=== PATIENT | male | born 1955 | race Caucasian/White ===

== ENCOUNTER → 2019-09-03 13:13 | Outpatient (BNVA) | payer OTHER, SELFPAY | PROVIDERS: Family Provider Nurse Practitioner; PCP Nurse Practitioner; Visit Provider Specialist | DX: G25.0 Essential tremor (principal); F17.210 Nicotine dependence, cigarettes, uncomplicated | CPT/HCPCS: 99213 ==

== ENCOUNTER → 2019-12-03 13:10 | Outpatient (BNVA) | payer OTHER, SELFPAY | PROVIDERS: Family Provider Nurse Practitioner; PCP Nurse Practitioner; Visit Provider Nurse Practitioner | DX: K21.9 Gastro-esophageal reflux disease without esophagitis (principal); I10 Essential (primary) hypertension; R39.11 Hesitancy of micturition | CPT/HCPCS: 71101; 80053; 80061 ==

== ENCOUNTER → 2020-07-06 09:12 | Outpatient (BNVA) | payer OTHER, SELFPAY | PROVIDERS: Family Provider Nurse Practitioner; PCP Nurse Practitioner; Visit Provider Nurse Practitioner | DX: I10 Essential (primary) hypertension (principal) | CPT/HCPCS: 80053; 80061; 81000 ==

== ENCOUNTER → 2020-08-07 10:31 | Outpatient (BNVA) | payer OTHER, SELFPAY | PROVIDERS: Family Provider Nurse Practitioner; PCP Nurse Practitioner; Visit Provider Family Medicine | DX: M79.645 Pain in left finger(s) (principal) | CPT/HCPCS: 73130 ==

== ENCOUNTER → 2020-08-31 09:26 | Outpatient (BNVA) | payer OTHER, SELFPAY | PROVIDERS: Family Provider Nurse Practitioner; PCP Nurse Practitioner; Visit Provider Specialist | DX: G25.0 Essential tremor (principal); F17.210 Nicotine dependence, cigarettes, uncomplicated | CPT/HCPCS: 99212 ==

== ENCOUNTER → 2021-02-03 08:29 | Outpatient (BNVA) | payer OTHER, SELFPAY | PROVIDERS: Family Provider Nurse Practitioner; PCP Nurse Practitioner; Visit Provider Nurse Practitioner | DX: I10 Essential (primary) hypertension (principal) | CPT/HCPCS: 80053; 80061; 81000 ==

== ENCOUNTER → 2021-07-29 11:17 | Outpatient (BNVA) | payer OTHER, SELFPAY | PROVIDERS: Family Provider Nurse Practitioner; PCP Nurse Practitioner; Visit Provider Nurse Practitioner | DX: I10 Essential (primary) hypertension (principal); R39.11 Hesitancy of micturition; Z12.5 Encounter for screening for malignant neoplasm of prostate; R73.9 Hyperglycemia, unspecified; R73.09 Other abnormal glucose; J30.89 Other allergic rhinitis | CPT/HCPCS: 80053; 80061; 81000; 83036; G0103 ==

== ENCOUNTER → 2022-04-22 10:04 | Outpatient (BNVA) | payer OTHER, SELFPAY | PROVIDERS: Family Provider Nurse Practitioner; PCP Nurse Practitioner; Visit Provider Nurse Practitioner | DX: R04.2 Hemoptysis (principal) | CPT/HCPCS: 71046; 80053; 80061; 84443; 85025 ==

== ENCOUNTER 2022-05-16 20:42 | Emergency (ER) | payer OTHER, SELFPAY ==
[2022-05-16] VITALS (36 sets, daily range): BP systolic 101–146; BP diastolic 67–82; PULSE 102–115; RESP 15–25; TEMP 36.8; O2SAT 90–96; BMI 37.1
--- NOTE | 2022-05-16 20:52 | XRR_ITS ---
PROCEDURE INFORMATION: Exam: XR Chest Exam date and time: 05/16/2022 9:03 PM Age: 66 years old Clinical indication: Other: Chest pain TECHNIQUE: Imaging protocol: Radiologic exam of the chest. Views: 1 view. COMPARISON: CR XR chest 2V* [id number] 04/22/2022 10:05 AM FINDINGS: Lungs: Decrease and now minimal residual patchy peripheral right midlung consolidation. Left lung remains clear. Pleural spaces: Right pleural effusion has resolved. Heart/Mediastinum: Unremarkable. No cardiomegaly. Bones/joints: Unremarkable. XR/XR chest 1V portable [id number] IMPRESSION: 1. Resolution of the right pleural effusion since previous. 2. Decrease and now minimal residual patchy peripheral right midlung consolidation.
--- NOTE | 2022-05-16 20:56 | ECG_ITS ---
[facility] Test Date: 2022-05-16 Pat Name: Mik Muhammad Department: Room: Gender: Male Hand Tube Bender: : 1955 Requested By: Joanna Roberts Order Number: [id number] Nathan MD: Vinod Damico M.D. Measurements Intervals [place] Rate: 110 P: 87 NM: 200 QRS: 161 QRSD: 117 T: 42 QT: 331 QTc: 450 Interpretive Statements SINUS TACHYCARDIA INDETERMINATE AXIS PATTERN CONSISTENT WITH PULMONARY DISEASE INCOMPLETE RIGHT BUNDLE BRANCH BLOCK [90+ ms QRS DURATION, TERMINAL R IN V1/V2, 40+ ms S IN I/aVL/V4/V5/V6] SEPTAL MYOCARDIAL INFARCTION , OF INDETERMINATE AGE [40+ ms Q WAVE IN V1/V2] INFERIOR MYOCARDIAL INFARCTION , PROBABLY OLD [40+ ms Q WAVE AND/OR ST/T ABNORMALITY IN II/aVF] No previous ECG available for comparison Electronically Signed On 05-17-2022 11:58:22 BLINDSTITCH HEMMER by Vinod Damico M.D. [email or web address] Gamesselect medical [facility] [place].Home Delivery Service (HDS)/store/OM/[id number]
--- NOTE | 2022-05-16 20:58 | W.ED.CHESTPA ---
HPI - Chest Pain General: Chief Complaint: Chest Pain Stated Complaint: Chest Pains Time Seen by Provider: 05/16/22 20:58 History of Present Illness: Mr. Muhammad is a 66-year-old gentleman with history of hypertension presenting to the emergency department due to chest discomfort. He reports being at his baseline health and had sudden onset dyspnea with exertion earlier today. Denies associated cough. Subsequently developed chest pressure in middle of his chest which he describes as pain that radiates to the back. He did have 1 episode of nausea and vomiting. Currently has mild to moderate intensity symptoms that had improved with aspirin. No frequent history of similar. No other specific changes in health, exacerbating, or alleviating factors identified. He did recover from pneumonia though felt essentially back to baseline a few weeks ago. Onset (ago): hour(s) Timing of current episode: constant Prior episodes: No Onset: during exertion Pain location: substernal Severity: moderate Quality: other Relieving factors: nothing Exacerbating factors: nothing Associated symptoms: Reports dyspnea, nausea and vomiting Review of Systems General: Reports: 10 or more systems reviewed and unremarkable except in HPI and below Resp: Reports: dyspnea GI: Reports: nausea and vomiting PFSH ED PFSH: Medical History Acid reflux Environmental and seasonal allergies HTN, goal below 130/80 Urinary hesitancy Surgical History History of appendectomy History of cholecystectomy History of colon resection History of vasectomy Family History Other Cancer Parkinson disease Social History Smoking and tobacco status: current every day smoker cigarettes Packs smoked per day: 1 Second hand smoke exposure: Yes Smoking risk assessment/counseling performed?: Yes Alcohol intake: current Alcohol intake frequency: few times a week Desire information about alcohol rehabilitation?: No Counseling given: No Desire information about substance/drug rehabilitation?: No Counseling given: No Adopted: No Caregiver/support person: No Lives independently: Yes Household members: spouse Housing: House Marital status: Number of children: 1 service: No Current occupational status: retired History of recent travel: No Current gender identity: Male Physical Exam Const: COMMON NORMALS: alert GENERAL APPEARANCE: cooperative, well developed and ill appearing HENMT: COMMON NORMALS: normocephalic and atraumatic HEAD & SCALP: normocephalic and atraumatic Eye: COMMON NORMALS: conjunctivae normal CONJUNCTIVA: Yes conjunctivae normal SCLERA: sclerae normal Neck/C-Spine: COMMON NORMALS: supple GENERAL: Yes trachea midline Resp: COMMON NORMALS: clear to auscultation bilaterally EFFORT & INSPECTION: Yes able to speak in complete sentences AUSCULTATION: clear to auscultation bilaterally Cardio: COMMON NORMALS: regular rhythm RATE: tachycardic RHYTHM: regular rhythm GI: COMMON NORMALS: Soft to palpation PALPATION: Yes Soft to palpation and No Tenderness to palpation present (GI) Extremity: GENERAL: Yes normal exam except as noted and No edema Neuro: COMMON NORMALS: moves all extremities SENSORIUM/ORIENTATION: Yes alert and No Orientation impaired Psych: COMMON NORMALS: mental status grossly normal and Normal thought process present THOUGHT PROCESS: Normal thought process present Course Vital Signs: Vital signs: Vital Signs Temperature 98.2 F 05/16/22 21:00 Pulse Rate 99 05/17/22 06:05 Respiratory Rate 22 H 05/17/22 04:45 Blood Pressure 108/67 05/17/22 06:20 Pulse Oximetry 94 05/17/22 06:05 Oxygen Delivery Me thod 05/16/22 21:00 MDM - Chest Pain Medical Decision Making 66-year-old gentleman presenting to the emergency department due to chest pressure and shortness of breath. On initial exam patient is somewhat ill-appearing and tachycardic. Breath sounds are clear. Labs were obtained and minimal leukocytosis, normal hemoglobin, platelet count is normal. Metabolic panel without significant electrolyte derangement. Initial troponin is elevated above expected and normal range however 2-hour delta troponin is negative. BNP mildly elevated. Given tachycardia and clinical exam/history D-dimer was warranted and was significantly elevated. Chest x-ray with no lobar consolidation or pneumothorax. Given elevated D-dimer CTA ordered. CT with evidence of bilateral pulmonary emboli and evidence of right heart strain/failure. Given degree of clot burden and laboratory findings as well as evidence of right heart strain/failure patient requires higher level care than we can provide and we started to look for accepting outside facility. Heparin drip was initiated after discussion with the patient. Unfortunately numerous facilities were unable to take the patient due to bed availability. They are unable to take the patient even as a ED to ED transfer. During course of looking for accepting facility patient began to decompensate. He developed increased shortness of breath, chest pain, diaphoresis. He also nausea and vomiting. He began hypotensive and fluid bolus was ordered. There is only minimal to modest improvement in blood pressure with IV fluids and patient remained hypotensive therefore I ordered an epinephrine drip. I re-called potential excepting facilities given change in patient's status and there is potential ICU bed availability at [facility] in [place] however after discussion with enterprise sales executive she is uncomfortable excepting the patient as a transfer given his instability. She recommended tPA. Given persistent hypotension despite fluids and clinical appearance this is reasonable. tPA risks and benefits discussed with the patient. Patient is agreeable to proceed with tPA administration. 100 mg administered over 2 hours. Patient serially reexamined without worsening or evidence of significant hemorrhage or change in mental status. Overall clinically he appears mildly improved with improvement in pain and shortness of breath. We did get acceptance from a facility in [place] and the patient was agreeable to transfer however air transportation apparently is no longer possible despite trying multiple companies. Fixed wing is not available until after 8 AM. I still believe that the patient needs ICU care and further potential intervention that it is outside of our available services and level of care that we can provide. Case was rediscussed with transfer center after tPA completion at [facility]. Patient accepted to ICU. Given that transferring to [place] provides a significant shorter time to definitive care we will transfer patient to [facility]. Air ambulance given to [place] remains unavailable therefore patient transferred via ground EMS. Condition remains guarded however currently stable. Medical Records I reviewed the patient's medical records. Lab Data I reviewed the patient's lab results. 05/16/22 20:50 05/16/22 20:50 Radiology Impressions Chest X-Ray 05/16/22 20:52 IMPRESSION: 1. Resolution of the right pleural effusion since previous. 2. Decrease and now minimal residual patchy peripheral right midlung consolidation. Chest CTA 05/16/22 22:30 IMPRESSION: 1. Bilateral pulmonary emboli with findings suspicious for right-sided heart strain and failure. Recommend interventional radiology consultation for possible thrombolysis procedure. 2. Peripheral right midlung consolidation or mass measuring 2.8 cm. Differential diagnosis is pulmonary infarct versus malignancy given persistent opacity since x-ray 04/22/2022. Recommend follow-up. THIS REPORT CONTAINS FINDINGS THAT MAY BE CRITICAL TO PATIENT CARE. The findings were verbally communicated via telephone conference with Nathan Page at 11:11 PM SUPERVISOR MAIL CARRIERS on 05/16/2022. The findings were acknowledged and understood. Laboratory Results WBC 11.5 10^3/uL (4.0-10.0) H 05/16/22 20:50 RBC 5.11 10^6/uL (4.1-5.3) 05/16/22 20:50 Hgb 14.4 g/dL (11.7-16.6) 05/17/22 05:00 Hct 44.5 % (42.0-52.0) 05/17/22 05:00 MCV 94.1 fl (80-94) H 05/16/22 20:50 MCH 30.1 pg (28.0-34.0) 05/16/22 20:50 MCHC 32.0 g/dL (30.0-36.0) 05/16/22 20:50 RDW 13.6 % (12.1-15.1) 05/16/22 20:50 Plt Count 203 10^3/cmm (130-400) 05/16/22 20:50 MPV 9.0 fL (7.4-10.4) 05/16/22 20:50 Neut % (Auto) 56.4 % 05/16/22 20:50 Lymph % (Auto) 34.3 % 05/16/22 20:50 [place] % (Auto) 6.3 % 05/16/22 20:50 Eos % (Auto) 2.1 % 05/16/22 20:50 Baso % (Auto) 0.6 % 05/16/22 20:50 Neut # (Auto) 6.49 10^3/uL (1.8-7.7) 05/16/22 20:50 Lymph # (Auto) 4.0 10^3/uL (0.8-4.8) 05/16/22 20:50 [place] # (Auto) 0.7 10^3/uL (0.2-0.9) 05/16/22 20:50 Eos # (Auto) 0.2 10^3/uL (0.0-0.8) 05/16/22 20:50 Baso # (Auto) 0.1 10^3/uL (0.0-0.1) 05/16/22 20:50 Nucleated RBC % (auto) 0 % 05/16/22 20:50 Nucleated RBCs # 0.0 /100WBC 05/16/22 20:50 PT 13.90 SECONDS (12.1-14.9) 05/16/22 20:50 INR 1.04 (0.8-1.2) 05/16/22 20:50 APTT 46.2 SECONDS (23.9-36.7) H D 05/17/22 05:00 D-Dimer 7.31 ug/mIFEU (0-0.59) H 05/16/22 20:50 Sodium 138 mmol/L (136-145) 05/16/22 20:50 Potassium 4.7 mmol/L (3.5-5.1) 05/16/22 20:50 Chloride 103 mmol/L (98-107) 05/16/22 20:50 Carbon Dioxide 23 mmol/L (22-29) 05/16/22 20:50 Anion Gap 16.7 (5-19) 05/16/22 20:50 BUN 10 mg/dL (8-23) 05/16/22 20:50 Creatinine 0.8 mg/dL (0.7-1.2) 05/16/22 20:50 GFR Calculation 97.3 mL/min (90-130) 05/16/22 20:50 Glucose 178 mg/dL (65-115) H 05/16/22 20:50 Calculated Osmolality 289 mOsm/kg (285-295) 05/16/22 20:50 Lactic Acid 1.2 mmol/L (0.5-2.2) 05/17/22 02:04 Calcium 8.8 mg/dL (8.5-10.5) 05/16/22 20:50 Total Bilirubin 0.3 mg/dL (0.15-1.2) 05/16/22 20:50 AST 13 U/L (0-40) 05/16/22 20:50 ALT 9 U/L (0-41) 05/16/22 20:50 Alkaline Phosphatase 77 U/L (40-130) 05/16/22 20:50 Troponin T Baseline 70 ng/L (0-15) H 05/16/22 20:50 Troponin T 120 Minute 66.02 ng/L (0-15) H 05/16/22 22:32 Delta Troponin T -3.98 ABS# (0-10) L 05/16/22 22:32 Troponin T Hi Sens 6Hr 49.17 ng/L (0-15) H 05/17/22 05:00 Troponin T Hi Sens 6Hr Delta -20.83 ng/L (0-12) L 05/17/22 05:00 NT-Pro-B Natriuret Pep 227 pg/mL (0-125) H 05/16/22 20:54 Total Protein 6.7 g/dL (6.6-8.7) 05/16/22 20:50 Albumin 3.7 g/dL (3.5-5.2) 05/16/22 20:50 Globulin 3.0 g/dL (1.3-4.6) 05/16/22 20:50 Lipase 35 U/L (13-60) 05/16/22 20:54 SARS-CoV-2 Ag (Rapid) negative (Negative) 05/17/22 01:28 Critical Care Time Critical Care Time: Critical Care Time: Yes Total Critical Care Time: 80 Attestation: Due to a high probability of clinically significant, possibly life threatening deterioration, the patient required my highest level of attention and preparedness to intervene emergently and I personally spent this critical care time directly and personally managing the patient. This critical care time included obtaining a history; examining the patient; pulse oximetry; ordering and review of laboratory and imaging studies; arranging urgent treatment with development of a management plan; evaluation of patient's response to treatment; frequent reassessment; and, discussions with other providers as applicable. It was exclusive of separately billable procedures. Primary system involved is cardiopulmonary. Discharge Plan Discharge Patient Disposition: Xfer Short-Term Hosp Clinical Impression: Acute massive pulmonary embolism, Hypoxia, Hypotension, Non-ST elevation [place] (NSTEMI), Right heart failure Condition: Fair Referrals: Ivis Castillo FNP-C [Primary Care Provider] - Coding Level of Care Code ED Laborer Wood Preserving Plant for g Fwd Exam Comprehensive
[2022-05-16 21:05] LABS: Basophils # 0.1 10^3/uL (0.0-0.1); Basophils % 0.6 %; Eosinophils # 0.2 10^3/uL (0.0-0.8); Eosinophils % 2.1 %; Hematocrit 48.1 % (42.0-52.0); Hemoglobin 15.4 g/dL (11.7-16.6); Lymphocytes % 34.3 %; Mean Corpuscular Hemoglobin 30.1 pg (28.0-34.0); Mean Corpuscular Volume 94.1 fl (80-94); Monocytes # 0.7 10^3/uL (0.2-0.9); Monocytes % 6.3 %; Neutrophils # 6.49 10^3/uL (1.8-7.7); Neutrophils % 56.4 %; Nucleated Red Blood Cells % 0 %; Platelet Count 203 10^3/cmm (130-400); Red Blood Count 5.11 10^6/uL (4.1-5.3); Red Cell Distribution Width 13.6 % (12.1-15.1); White Blood Count 11.5 10^3/uL (4.0-10.0)
[2022-05-16 21:37] LABS: Alanine Aminotransferase 9 U/L (0-41); Albumin Level 3.7 g/dL (3.5-5.2); Alkaline Phosphatase 77 U/L (40-130); Anion Gap 16.7 (5-19); Aspartate Amino Transferase 13 U/L (0-40); Blood Urea Nitrogen 10 mg/dL (8-23); Calcium 8.8 mg/dL (8.5-10.5); Carbon Dioxide 23 mmol/L (22-29); Chloride 103 mmol/L (98-107); Glomerular Filtration Rate 97.3 mL/min (90-130); Glucose 178 mg/dL (65-115); Osmolality Calculated 289 mOsm/kg (285-295); Potassium 4.7 mmol/L (3.5-5.1); Sodium 138 mmol/L (136-145); Total Bilirubin 0.3 mg/dL (0.15-1.2); Total Protein 6.7 g/dL (6.6-8.7)
[2022-05-16 21:39] LABS: Troponin(5th) Baseline 70 ng/L (0-15)
[2022-05-16 21:48] LABS: Lipase 35 U/L (13-60); NT Pro B Type Natriuretic Pept 227 pg/mL (0-125)
[2022-05-16] MEDS: sodium chloride 0.9% 500 ML 999 ML IV (21:48)
[2022-05-16] MEDS: morphine 4 mg/mL SDV 1 mL IVP (21:49)
[2022-05-16] MEDS: ondansetron 2 mg/ML SDV 2 mL 4 MG IVP (21:50)
[2022-05-16] MEDS: aspirin 81 mg Chew Tablet 162 MG PO (21:50)
[2022-05-16 22:29] LABS: D Dimer 7.31 ug/mIFEU (0-0.59)
--- NOTE | 2022-05-16 22:30 | CTR_ITS ---
PROCEDURE INFORMATION: Exam: CTA Chest With Contrast Exam date and time: 05/16/2022 10:40 PM Age: 66 years old Clinical indication: Pain and abnormal findings; Abnormal diagnostic tests; Elevated d-dimer; Shortness of breath; Chest pressure; Prior surgery; Surgery type: Gb; Patient HX: C/O chest pain with SOB. D dimer of 7.31. Baseline trop of 70. ; Additional info: Cp, elevated ddimer, tachycardia TECHNIQUE: Imaging protocol: Computed tomographic angiography of the chest with contrast. 3D rendering (Not supervised by radiologist): MIP and/or 3D reconstructed images were created by the technologist. Radiation optimization: All CT scans at this facility use at least one of these dose optimization techniques: automated exposure control; mA and/or kV adjustment per patient size (includes targeted exams where dose is matched to clinical indication); or iterative reconstruction. Contrast material: OMNI 350; Contrast volume: 80 ml; Contrast route: INTRAVENOUS (IV); COMPARISON: CR (CHEST, ) 05/16/2022 9:03 PM RADIATION DOSE METRICS: Total DLP (mGy-cm): 451.53 FINDINGS: Pulmonary arteries: Bulky thrombi are seen in the bilateral main pulmonary arteries extending to the segmental and subsegmental levels on the left greater than right side. No saddle embolus. Aorta: Unremarkable. No aortic aneurysm. No aortic dissection. Lungs: Mild emphysema. Pleural spaces: Consolidation or mass in the peripheral right mid lung abutting the pleura measures 2.8 x 1.5 cm on series 4, image 27, correlating with the abnormality on the comparison chest x-ray. Heart: Intraventricular septum is straightened, suspicious for right heart strain. Reflux of contrast into the IVC suggests possible right heart failure as well. Heart size is normal. RV/LV ratio is 1.6. Lymph nodes: Unremarkable. No enlarged lymph nodes. Gallbladder and bile ducts: Status post cholecystectomy. Adrenal glands: Mass in the left adrenal gland measures 1.9 cm, in an average of minus 13 Hounsfield units, consistent with an adenoma. Bones/joints: Unremarkable. No acute fracture. Soft tissues: Unremarkable. Other findings: Mild emphysema. CT/CT angio chest PE protcl [id number] IMPRESSION: 1. Bilateral pulmonary emboli with findings suspicious for right-sided heart strain and failure. Recommend interventional radiology consultation for possible thrombolysis procedure. 2. Peripheral right midlung consolidation or mass measuring 2.8 cm. Differential diagnosis is pulmonary infarct versus malignancy given persistent opacity since x-ray 04/22/2022. Recommend follow-up. THIS REPORT CONTAINS FINDINGS THAT MAY BE CRITICAL TO PATIENT CARE. The findings were verbally communicated via telephone conference with Nathan Page at 11:11 PM CASTING AGENT on 05/16/2022. The findings were acknowledged and understood.
--- NOTE | 2022-05-16 22:37 | ECG_ITS ---
[facility] Test Date: 2022-05-16 Pat Name: Mik Muhammad Department: Room: Gender: Male Change Room Attendant: : 1955 Requested By: Joanna Roberts Order Number: [id number] Evans MD: Vinod Damico M.D. Measurements Intervals [place] Rate: 105 P: 70 ME: 209 QRS: 168 QRSD: 106 T: 50 QT: 330 QTc: 437 Interpretive Statements SINUS TACHYCARDIA INDETERMINATE AXIS PATTERN CONSISTENT WITH PULMONARY DISEASE RIGHT BUNDLE BRANCH BLOCK [120+ ms QRS DURATION, UPRIGHT V1, 40+ ms S IN I/aVL/V4/V5/V6] SEPTAL MYOCARDIAL INFARCTION , OF INDETERMINATE AGE [40+ ms Q WAVE IN V1/V2] Compared to ECG 05/16/2022 20:56:20 Right bundle-branch block now present Incomplete right bundle-branch block no longer present Myocardial infarct finding still present Electronically Signed On 05-17-2022 12:01:13 MIX HOUSE TENDER by Vinod Damico M.D. [email or web address] memorial [id number]
[2022-05-16] MEDS: iohexol 350 mg/mL 500 mL Btl (per mL) IV (22:50)
[2022-05-16 23:07] LABS: Troponin 5 2HR 66.02 ng/L (0-15)
[2022-05-16 23:09] LABS: Troponin 5 2HR Delta -3.98 ABS# (0-10)
[2022-05-16 23:46] LABS: INR 1.04 (0.8-1.2); Partial Thromboplastin Time 28.3 SECONDS (23.9-36.7)
[2022-05-16] MEDS: heparin 5,000 unit/mL INJ 1 mL IV (23:46)
[2022-05-17] VITALS (80 sets, daily range): BP systolic 65–120; BP diastolic 42–89; PULSE 77–120; RESP 15–31; O2SAT 74–96
[2022-05-17] MEDS: heparin drip 25,000 UNIT/500 ML PREMIX 29.21 UNIT IV (00:03)
[2022-05-17] MEDS: morphine 4 mg/mL SDV 1 mL IVP (00:47)
[2022-05-17] MEDS: sodium chloride 0.9% 500 ML 999 ML IV (00:48)
[2022-05-17 02:00] LABS: SARS Covid-2 Antigen negative (Negative)
[2022-05-17 02:31] LABS: Lactic Sepsis W/Reflex 1.2 mmol/L (0.5-2.2)
[2022-05-17] MEDS: EPINEPHrine 2.5 MG in sodium chloride 0.9% 250 ML 6.06 MG IV (02:47)
--- NOTE | 2022-05-17 02:52 | ECG_ITS ---
[facility] Test Date: 2022-05-17 Pat Name: Mik Muhammad Department: Room: Gender: Male Protector Plate Attacher: : 1955 Requested By: Joanna Roberts Order Number: [id number] Evans MD: Vinod Damico M.D. Measurements Intervals [place] Rate: 93 P: 73 CA: 201 QRS: 157 QRSD: 105 T: 52 QT: 345 QTc: 431 Interpretive Statements SINUS RHYTHM PATTERN CONSISTENT WITH PULMONARY DISEASE INCOMPLETE RIGHT BUNDLE BRANCH BLOCK [90+ ms QRS DURATION, TERMINAL R IN V1/V2, 40+ ms S IN I/aVL/V4/V5/V6] POSSIBLE RIGHT VENTRICULAR HYPERTROPHY [SOME/ALL OF: PROMINENT R IN V1, LATE TRANSITION, RAD, JOSE ENRIQUE, SSS] SEPTAL MYOCARDIAL INFARCTION , OF INDETERMINATE AGE [40+ ms Q WAVE IN V1/V2] Compared to ECG 05/16/2022 22:37:39 Incomplete right bundle-branch block now present ST (T wave) deviation now present Sinus tachycardia no longer present Indeterminate axis no longer present Right bundle-branch block no longer present Myocardial infarct finding still present Electronically Signed On 05-17-2022 12:01:02 COVERSTITCH MACHINE OPERATOR by Vinod Damico M.D. [email or web address] [id number]
[2022-05-17] MEDS: fentaNYL 50 mcg/mL INJ 2mL IVP (03:18)
[2022-05-17] MEDS: ondansetron 2 mg/ML SDV 2 mL 4 MG IVP (03:18)
[2022-05-17 05:38] LABS: Hematocrit 44.5 % (42.0-52.0); Hemoglobin 14.4 g/dL (11.7-16.6)
[2022-05-17 05:39] LABS: Partial Thromboplastin Time 46.2 SECONDS (23.9-36.7)
[2022-05-17 05:46] LABS: Troponin 5 6HR 49.17 ng/L (0-15)
== END 2022-05-17 06:25 | disposition short-term general hospital (02) ==
PROVIDERS: Physician Assistant; Emergency Provider Emergency Medicine; PCP Nurse Practitioner
DX: I26.99 Other pulmonary embolism without acute cor pulmonale (principal); R09.02 Hypoxemia; I95.9 Hypotension, unspecified; I21.4 Non-ST elevation (NSTEMI) myocardial infarction; I11.0 Hypertensive heart disease with heart failure; I50.9 Heart failure, unspecified; F17.210 Nicotine dependence, cigarettes, uncomplicated; Z20.822 Contact with and (suspected) exposure to COVID-19
CPT/HCPCS: 71045; 71275; 80053; 83605; 83690; 83880; 84484; 85014; 85018; 85025; 85378; 85610; 85730; 87426; 93005; 96365; 96366; 96375; 99291; 99292; J0171; J1644; J2270; J2405; J2997; J3010; J7040; J7050; Q9967

== ENCOUNTER 2022-08-12 16:15 | Outpatient (CLI) | payer OTHER, SELFPAY ==
--- NOTE | 2022-08-12 16:38 | CT_ITS ---
WS: [id number] CTA OF THE CHEST WITH PULMONARY EMBOLISM PROTOCOL TECHNIQUE: High-resolution contrast enhanced CTA of the chest with coronal and sagittal reformatted i lisas with pulmonary embolism protocol. MIP images are also reviewed. CLINICAL INFORMATION: PULMONARY EMBOLISM COMPARISON: CTA May 16, 2022 DLP: 456.[address] scans at [facility] use at least one of these dose optimization techniques: automated e xposure control; mA and/or kV adjustment per patient size (includes targeted exams where dose is matc hed to clinical indication); or iterative reconstruction. FINDINGS: Proximal main pulmonary arteries are normal. Significant improvement with near resolution of the prev iously described pulmonary emboli. A few residual chronic appearing filling defects in the segmental and subsegmental pulmonary arteries RIGHT greater than LEFT. No evidence of new pulmonary embolus. Pr eviously described RIGHT heart strain has resolved. Normal caliber thoracic aorta. Aortic calcification. No mediastinal or hilar lymphadenopathy. No axillary lymphadenopathy. LEFT adre nal adenoma measuring 16 mm. Normal RIGHT adrenal gland. Cholecystectomy clips. Subpleural opacity in the RIGHT upper lobe along the fissure has improved and nearly resolved. No new acute pulmonary infi ltrates today. CT/CT angio chest PE protcl [id number] IMPRESSION: 1. Proximal main pulmonary arteries are normal. 2. Improved and nearly resolved previously described pulmonary emboli. Residua l chronic sequelae of pulmonary embolus in the RIGHT greater than LEFT segmenta l and subsegmental pulmonary arteries. No evidence of new embolus. 3. Previously described RIGHT heart strain appears to have resolved. 4. RIGHT upper lobe pleural-based opacity has decreased in size and nearly res olved. 5. No new pulmonary infiltrates. 6. Small LEFT 16 mm adrenal adenoma unchanged. 7. Small esophageal hiatal hernia.
[2022-08-12 17:21] LABS: Blood Urea Nitrogen 10 mg/dL (8-23); Glomerular Filtration Rate 67.4 mL/min (90-130)
[2022-08-12] MEDS: iohexol 350 mg/mL 100 mL Btl IV (17:33)
== END 2022-08-12 16:16 | disposition home or self-care (01) ==
LOC: RAD 16:21
PROVIDERS: Radiology Neuroradiology; PCP Internal Medicine; Visit Provider Emergency Medicine
DX: I26.99 Other pulmonary embolism without acute cor pulmonale (principal); D35.02 Benign neoplasm of left adrenal gland; K44.9 Diaphragmatic hernia without obstruction or gangrene
CPT/HCPCS: 71275; 82565; 84520; Q9967

== ENCOUNTER 2022-08-24 16:18 | Outpatient (CLI) | payer OTHER, SELFPAY ==
--- NOTE | 2022-08-24 16:27 | CT_ITS ---
WS: [id number] CT ABDOMEN AND PELVIS WITH AND WITHOUT CONTRAST HISTORY: GROSS HEMATURIA TECHNIQUE: Unenhanced 5 mm axial imaging first performed through the abdomen. Post contrast imaging t hrough the abdomen and pelvis. Oral contrast has not been provided. Sagittal and coronal reformats a re submitted. All CT scans at [facility] use at least one of these dose optimization techniqu es: automated exposure control; mA and/or kV adjustment per patient size (includes targeted exams whe re dose is matched to clinical indication); or iterative reconstruction. CONTRAST: Omnipaque 350; 95 mL IV. DLP: 1835.28 mGy.cm COMPARISON: None available. Lung bases are clear. Normal size heart. Small hiatal hernia. RIGHT kidney: 10.7 cm in length. Nonobstructing 5 mm calcification in the lower pole. No solid mass o r cyst. No filling defects in the uroepithelial system. Incomplete opacification of the ureter beginn ing in the mid ureter. Distal ureter is normal size. LEFT kidney: 10.1 cm in length. Normal size kidney. No renal obstruction or calcification. No renal m ass or cyst. No uroepithelial lesions. Complete contrast opacification of the LEFT ureter. Urinary bladder: Normally distended. No enhancing masses. No intraluminal filling defect. Normal liver and spleen. Normal enhancement of the portal vein. Prior cholecystectomy. LEFT adrenal a denoma measures 18 mm. Normal RIGHT adrenal gland. Normal pancreas. Moderate atherosclerotic plaque t hroughout the aorta. No aneurysm. Bifurcation is intact. Normal enhancement of the SMA and celiac axi s. Normal variant celiac axis. Splenic and hepatic arteries arise separately from the aorta. Normal I MA. Mild distention of the stomach with fluid. No small bowel obstruction. Mild diffuse constipation. Sca ttered diverticula in the distal colon without acute diverticulitis. No obstructive pattern. Prior ap pendectomy. No free fluid or adenopathy. Minimal prominence of the prostate gland with calcification. No destructive bone lesions. CT/CT abdomen pelvis wo/w [id number] IMPRESSION: 1. Nonobstructing 5 mm calcification lower pole RIGHT kidney. 2. No renal mass or obstruction. 3. LEFT ureter is seen in its entirety with no uroepithelial lesions. 4. Limited opacification of the RIGHT ureter. Mid to distal RIGHT ureter is no t opacified but the ureter size is normal size with no obstruction. 5. No uroepithelial lesions in the bladder. 6. Prior cholecystectomy and appendectomy. 7. Mild diverticulosis without acute diverticulitis. 8. LEFT adrenal adenoma.
[2022-08-24] MEDS: iohexol 350 mg/mL 500 mL Btl (per mL) IV (16:47)
== END 2022-08-24 16:19 | disposition home or self-care (01) ==
LOC: RAD 16:19
PROVIDERS: PCP Internal Medicine; Visit Provider Internal Medicine
DX: R31.0 Gross hematuria (principal); N28.89 Other specified disorders of kidney and ureter
CPT/HCPCS: 74178; Q9967

== ENCOUNTER → 2023-08-09 12:14 | Outpatient (BNVA) | payer MEDICARE, OTHER, SELFPAY | PROVIDERS: PCP Internal Medicine; Visit Provider Specialist | DX: G25.0 Essential tremor (principal); F17.210 Nicotine dependence, cigarettes, uncomplicated | CPT/HCPCS: 99212 ==